=== PATIENT | male | born 2000 | race Caucasian/White ===

== ENCOUNTER 2024-01-01 07:56 | Emergency (ER) | payer OTHER ==
[~2024-01-01] VITALS: Ht 180.3 cm; Wt 75.2 kg
[2024-01-01] MEDS ORDERED: IBUPROFEN 600 MG TAB PO ONE (08:30)
[2024-01-01 08:51] VITALS: BP 126/76
[2024-01-01] MEDS ORDERED: CRUTCHES XX (08:52)
== END 2024-01-01 08:51 | disposition home or self-care (01) ==
LOC: ED 07:56
DX: M79.672 Pain in left foot (principal)
CPT/HCPCS: 73630; 99283; A9270